=== PATIENT | male | born 1965 | race Caucasian/White ===

== ENCOUNTER 2024-03-24 12:41 | Outpatient (AMB) | payer MEDICARE, MEDICAID, SELFPAY ==
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
[2024-03-24 12:45] VITALS: BP 110/68; PULSE 90; RESP 16; O2SAT 98; BMI 29.9
== END 2024-03-24 14:28 | disposition home or self-care (01) ==
PROVIDERS: PCP Student in an Organized Health Care Education/Training Program; Visit Provider Nurse Practitioner Family
DX: G40.909 Epilepsy, unspecified, not intractable, without status epilepticus (principal); F10.90 Alcohol use, unspecified, uncomplicated; Z87.820 Personal history of traumatic brain injury
CPT/HCPCS: 99204

== ENCOUNTER → 2024-03-24 12:41 | Outpatient (BNVA) | payer MEDICARE, MEDICAID, SELFPAY | PROVIDERS: PCP Student in an Organized Health Care Education/Training Program; Visit Provider Nurse Practitioner Family | DX: G40.909 Epilepsy, unspecified, not intractable, without status epilepticus (principal); F10.90 Alcohol use, unspecified, uncomplicated; Z91.81 History of falling; Z87.820 Personal history of traumatic brain injury | CPT/HCPCS: 99202 ==

== ENCOUNTER 2024-06-04 12:41 | Outpatient (REF) | payer MEDICARE, MEDICAID, SELFPAY ==
--- NOTE | 2024-06-04 12:46 | EEG_ITS ---
This is a 16-channel EEG with an EKG lead. The patient is reported awake during the tracing. Background EEG rhythm is about 10 hertz or faster, low to medium amplitude, with no obvious asymmetry or paroxysmal tendency. Photic stimulation does not produce any significant abnormality. Hyperventilation is not performed. Cardiac lead does not reveal any significant abnormality. No sharp wave spikes or paroxysmal tendency noted. IMPRESSION: Unremarkable EEG. MD AMADEO Milligan/HILARIA / [id number]
== END 2024-06-04 12:42 | disposition home or self-care (01) ==
LOC: HO.NEURO 12:41
PROVIDERS: Visit Provider Nurse Practitioner Family
DX: G40.909 Epilepsy, unspecified, not intractable, without status epilepticus (principal); I50.42 Chronic combined systolic (congestive) and diastolic (congestive) heart failure
CPT/HCPCS: 95816